=== PATIENT | female | born 1995 | race Caucasian/White ===

== ENCOUNTER 2019-12-14 11:16 | Outpatient (CLI) | payer BC, SELFPAY ==
[2019-12-14 12:22] LABS: Hemoglobin 11.1 g/dL (12.0-15.0); Mean Corpuscular HGB Conc 32.6 g/dl (32-36); Mean Corpuscular Hemoglobin 30.7 pg (26-34); Mean Corpuscular Volume 94.2 fl (80-100); Mean Platelet Volume 11.3 fl (7.4-10.4); Platelet Count Result 243 k/mm3 (150-375); Red Blood Count 3.61 M/mm3 (4.2-5.4); Red Cell Distribution Width 14.9 % (11.5-14.5); White Blood Count 11.3 K/mm3 (4.5-10.0)
[2019-12-16 09:15] LABS: Rapid Plasma Reagin Non-Reactive (NonReactive)
== END 2019-12-14 11:17 | disposition home or self-care (01) ==
PROVIDERS: Visit Provider Obstetrics & Gynecology
DX: Z01.812 Encounter for preprocedural laboratory examination (principal)
CPT/HCPCS: 36415; 85027; 86592; 86850; 86900; 86901

== ENCOUNTER 2019-12-16 08:17 | Inpatient (IN) | payer BC, SELFPAY ==
--- NOTE | 2019-12-14 12:56 | PC.NURSE ---
VERIFIED WITH OR SCHEDULE AND PATIENT --C/S ON 12/16/19 AT 1030 PATIENT HAD LABS DRAWN ON 12/14/19 BEFORE PREADMIT APPOINTMENT
[2019-12-16] VITALS (69 sets, daily range): BP systolic 80–123; BP diastolic 44–95; PULSE 62–156; RESP 12–18; TEMP 36.2–36.8; O2SAT 96–100; BMI 35.5
--- NOTE | 2019-12-16 08:10 | P.HP_ITS ---
H&P: HPI History of Present Illness Chief complaint: labor Narrative: Tristan Deluna is a 24 year old female @ 39 weeks scheduled for a repeat csection. complicated by a prior csection. Patient reports positive movement, denies rupture of membranes. [facility] Surgical History Surgical History H/O: Family History Family History Grandparent Diabetes mellitus Hypertension Social History Social History Substance use: never Spiritual care concerns: No Meds Home Medications and Allergies Home Medications Medication Instructions Recorded Confirmed Type PNV cmb#95-ferrous fumarate-FA 1 tablet PO DAILY 12/14/19 12/14/19 History [] ergocalciferol (vitamin D2) 1,250 mcg PO WEEKLY 12/14/19 12/14/19 History [Vitamin D2] Allergies Allergy/AdvReac Type Severity Reaction Status Date / Time No Known Drug Allergies Allergy Unknown Verified 12/03/15 13:33 Exam Const: General: no acute distress Resp: Auscultation: clear to auscultation bilaterally GI: GI Palp: Yes Soft to palpation Other: Gravid Assessment and Plan Assessment and plan (1) H/O: : Code(s): Z98.891 - History of uterine scar from previous surgery Status: Acute Assessment and Plan: Scheduled for a repeat cesearean risk and benefits reviewed with patient in detail.
--- NOTE | 2019-12-16 09:08 | LDADM ---
This patient, Tristan Deluna, was admitted to OB Post 117 on 12/16/19 at 08:17. Plans for labor, pain management and were discussed with patient. Patient/family oriented to hospital policies and general routines including ID bracelet, bed and alarms, visiting hours, pain management, procedures, bathroom and other care routines, personal items, smoking policy, room service/diet and guest tray routines, security routines, and visiting hours. Patient/Family are encouraged to report perceived risks to care and to ask questions if they do not understand what they are told or what they should do. See OBIX for further documentation.
[2019-12-16] MEDS: LACTATED RINGERS 1,000 ML 999 ML IV CONT (09:14)
--- NOTE | 2019-12-16 09:39 | P.PNAN_ITS ---
Anes - Initial Pre Proc Eval Procedure: Operation Date: 12/16/19 10:30 Proposed Procedures p Repeat Section - Oren Jalloh MD Date/Time: 12/16/19 09:39 Surgeon: Oren Jalloh MD Pre Op Diagnosis: Section Patient Data Age: 24 Gender: F Height: 1.6 m Weight: 91 kg Last Vital Signs Pulse 97 12/16/19 09:16 BP 121/69 12/16/19 09:16 Allergies Allergy/AdvReac Type Severity Reaction Status Date / Time No Known Drug Allergies Allergy Unknown Verified 12/03/15 13:33 Home Medications Medication Instructions Recorded Confirmed Type PNV cmb#95-ferrous fumarate-FA 1 tablet PO DAILY 12/14/19 12/14/19 History [] ergocalciferol (vitamin D2) 1,250 mcg PO WEEKLY 12/14/19 12/14/19 History [Vitamin D2] Patient hx anesthesia problems: none Family hx anesthesia problems: none PMFSH Surgical History Surgical History H/O: Family History Family History Grandparent Diabetes mellitus Hypertension Social History Social History Smoking status: Never smoker Substance use: never Spiritual care concerns: No Anes - Eval Final PreProcedure Day of Procedure 12/16/19 09:39 Patient weight: overweight Heart: regular rate and rhythm Lungs: clear to auscultation and normal air movement Airway: Mallampati scale class II Neurological: alert and oriented Last oral intake: >/= 8 hours ASA classification: II Emergent: no Anesthetic plan: proceed Anesthesia type and monitoring: regional spinal Informed Consent: The patient's anesthetic plan and its attendant risks and bene fits were discussed with the patient/family/POA. Questions were solicited and answers provided to the satisfaction of the patient/family/POA.
[2019-12-16] MEDS: ceFAZolin 2 GM/D5W 50 ML 2 GM/50 ML BAG IVPB (10:26)
--- NOTE | 2019-12-16 11:11 | P.PCNOB_ITS ---
OB - Delivery Note Procedure Delivery date: 12/16/19 Procedure: LTCS Procedures Operation Date: 12/16/19 10:30 <No data on this case meets the specified criteria> Intrapartal events: None Induction method: none Route of delivery: Laceration description: None Specimen: Yes Estimated blood loss (mL): 330 Anesthesia type: Spinal Disposition: observation [place] Baby Date of : 12/16/19 Time of : 10:48 Weeks of gestation at delivery: 39 gender: Male Weight (pounds): 7 Weight (ounces): 2 presentation: vertex position: Right Occiput Anterior Placenta delivery description: Spontaneous cord vessel description: 2 Vessels and Nuchal Cord score one minute: 8 score five minutes: 9
--- NOTE | 2019-12-16 11:13 | PM.DS ---
DS: Admitting Diagnosis Admitting Diagnosis Admitting Diagnosis: History of uterine scar from previous surgery DS: Discharge Diagnosis Discharge Diagnosis (1) H/O: : Code(s): Z98.891 - History of uterine scar from previous surgery Status: Acute DS: Summary Time Spent with Patient Time attestation: Total time spent providing and/or coordinating discharge services: Discharge Plan Discharge Attending physician on discharge: Oren Jalloh Consulting providers: ; Lobo Song Discharging Clinician: Oren Jalloh Patient Disposition: Home, Self-Care Activity: may shower and pelvic rest Diet: regular Discharge Instructions: Education: Mom and Baby Guide Given to: Mother Follow-Up: Call your delivering provider's office for an appointment to be seen in: 1 Week Mom and baby should come to the [facility] for the follow-up appointment. Appointment Date/Time: December 19, 2019 at 9:00 am What to expect at your follow-up visit: Blood Pressure Check Call [phone] if you are unable to keep your appointment time. BREAST CARE: 1. Wear a snug supportive bra. 2. For engorgement discomfort: Breast Feeding: A. Apply warm moist washcloths B. Express milk as needed to relieve engorgement C. Wear loose clothing Bottle Feeding: A. May apply ice packs 3. For sore nipples: A. Identify correct latch-on B. Apply warm moist washcloths before and after nursing C. Air dry nipples after nursing D. May apply Lansinoh cream to nipples ABDOMINAL INCISION: (if applicable) 1. Allow incision to air dry 2. Do NOT use lotions for powders on your incision 3. When showering, allow soap and water to run over the incision, but do not wash incision EPISIOTOMY/PERINEAL CARE: 1. Until bleeding stops, use your ld bottle after urinating 2. Change your pad frequently throughout the day 3. No tub baths until seen by your physician - You may shower ACTIVITY: 1. Rest as much as possible. 2. Do not exercise or lift anything heavier than your baby (such as laundry or other children.) 3. Avoid stairs or driving as much as possible. 4. Do not put anything into the vagina. No douching, tampons, or sexual activity until seen by physician. NOTIFY PHYSICIAN IF YOU HAVE ANY QUESTIONS OR IF ANY OF THE FOLLOWING SYMPTOMS OCCUR: 1. If your incision becomes red, swollen, or more painful than what you have experienced in the hospital. 2. If your vaginal bleeding becomes foul smelling. 3. If your vaginal bleeding becomes more heavy than a period or if your bleeding changes from pink to bright red. However, you may pass an occasional walnut-sized clot once or twice for the first week . 4. If you experience a sharp, shooting pain in you calves. 5. If you discover a hard, reddened area on your breast or if you experience flu-like symptoms. 6. Call for temp 100.4 or greater DIET: 1. Eat regular, well-balanced meals. 2. Drink plenty of fluids daily. If , drink to thirst. Patient Instructions: Antibiotic Form Stand Alone Forms: General Discharge Information Follow-up/Referrals: Oren Jalloh MD [Physician] - Discharge Medications: New hydrocodone-acetaminophen 5-325 mg Tablet 1 tab PO Q4H PRN (Reason: Pain Rated 4-6) Qty: 30 RF: 0 Continued ergocalciferol (vitamin D2) [Vitamin D2] 1,250 mcg (50,000 unit) Capsule 1,250 mcg PO WEEKLY RF: 0 PNV cmb#95-ferrous fumarate-FA [] 28 mg iron- 800 mcg Tablet 1 tablet PO DAILY RF: 0 Date of admission: 12/16/19 08:17 Primary Care Provider: PHYSICIAN NOT ON STAFF,NONSTAFF Admitting Provider: Oern Jalloh Discharge Date/Time: 12/18/19 12:56 Attending physician on admission: Oren Jalloh
[2019-12-16] MEDS: OXYTOCIN 20 UNITS in LACTATED RINGERS 1,000 ML 999 ML IV CONT (12:11)
--- NOTE | 2019-12-16 13:29 | PC.NURSE ---
Patient transferred to post room #291. Support person present. Oriented to unit, room, information board, rooming in, admission packet and security measures. Patient verbalizes understanding.
--- NOTE | 2019-12-16 13:45 | PC.NURSE ---
After moving from stretcher to bed for small area noted on right side of incision noted to be oozing. Dermaflex applied to incision and no further bleeding noted.
--- NOTE | 2019-12-16 15:30 | PC.NURSE ---
Mother called out for assist. Consulted with patient, mother reports eagerly fed at first feeding. Mother reports she used a nipple shield with first child and then switched to pump and bottle feeding within a few weeks. Reviewed infant feeding cues, frequencies, duration of feedings, feeding elimination flow sheet, and signs of adequate intake. Demonstrated stimulation techniques to wake infant for feeding. Assisted with to breast. Reviewed positioning/alignment in cross cradle, holding breast in U hold and guided asymmetrical latch on. Discussed rational for each. 1420 attempt no latch skin to skin 1500 eager attempts returning to sleep skin to skin 1530 Several attempts made with skin to skin before latched. was able to latch correctly with first attempt. nursed eagerly, with steady draws and frequent swallowing noted. Reviewed signs of a correct latch, effective nursing and suck swallow ratio. was able to maintain latch without discomfort to mother. Nipple care reviewed. Suggested to stimulate during feeding to keep infant awake and nursing effectively for increased intake and assist with maintaining deep latch. Demonstrated how to adjust latch more deeply while feeding. Instructed mother to call out for RN assistance if she is unable to latch infant for feeding or she has discomfort with nursing. Instructed feeding should be initiated three hours from start of last feeding or if feeding cues are noted before. Mother voiced understanding of information shared.
[2019-12-16] MEDS: DEXTROSE 5%/0.45% SOD CHL 1,000 ML 125 ML (17:05)
[2019-12-17 03:00] VITALS: BP 114/67; PULSE 105; RESP 16; TEMP 36.8; O2SAT 97
[2019-12-17 04:07] LABS: Hemoglobin 11.1 g/dL (12.0-15.0)
[2019-12-17] MEDS: IBUPROFEN 600 MG TABLET PO ×3 (06:01→18:07)
--- NOTE | 2019-12-17 07:46 | PM.OBPNVD ---
OB - PN: Subj Subjective Date/time seen: 12/17/19 07:46 Patient comments: no complaints and pain well controlled baby status: doing well OB - PN: Obj Data Labs CBC & Chem 7: 12/17/19 02:58 Labs: Laboratory Results - last 24 hr 12/17/19 02:58 Hgb 11.1 L Hct 34.0 L OB - PN A/P Assessment and Plan (1) delivery delivered: Code(s): O82 - Encounter for delivery without indication Status: Acute Assessment and Plan: Doing well. Continue care. Time Spent With Patient Time: Total time spent is greater than 50% in coordination of care (as documented) at patient's floor/unit and/or counseling patient: Exam GI: Other: inc c/d/i : Bimanual exam- vagina & uterus: other (Uterus firm, nt @U)
--- NOTE | 2019-12-17 07:56 | WPDANLDNPN2 ---
Anes-Prog Note L&D-Neuraxial Date/Time: 12/17/19 07:56 Neuraxial medications: intrathecal PF morphine Opiod-related complaints: none Patient feedback: Patient satisfied with post-operative pain management.
--- NOTE | 2019-12-17 07:56 | WPDANLDPN2 ---
Anes-Prog Note L&D Date/Time: 12/17/19 07:56 Comfortable throughout: section Neuraxial method: spinal Epidural/Spinal procedure site: clean & non-tender Neuro status: Neuro function grossly intact. Cardiovascular status: normal Respiratory status: normal Airway patency: baseline Mental status: baseline Post-Op hydration status: normal Vital Signs: Last Vital Signs Temp 36.8 C 12/17/19 03:00 Pulse 105 H 12/17/19 03:00 Resp 16 12/17/19 03:00 BP 114/67 12/17/19 03:00 Pulse Ox 97 12/17/19 03:00 I/O: Intake & Output 12/16/19 12/16/19 12/17/19 15:59 23:59 07:59 Intake Total 1150 1000 Output Total 673 121 1846 Balance 170 550 -2750 Post-procedural complaints: none Patient feedback: Patient satisfied with anesthetic care.
[2019-12-17 08:45] VITALS: BP 122/72; PULSE 98; RESP 18; TEMP 36.7; O2SAT 97
[2019-12-17] MEDS: DOCUSATE SODIUM 100 MG CAPSULE PO ×2 (08:55→17:04)
[2019-12-17] MEDS: MULTIVIT/MIN/PREN/FOL AC/IRON TABLET 1 TAB PO (08:56)
--- NOTE | 2019-12-17 09:15 | PC.NURSE ---
Consulted with patient, mother reports infant fed well during the night. Mother put to breast independently, was latched deeply, nursing eagerly with steady draws and frequent swallowing for bursts followed with long pausing. Reviewed signs of a correct latch, effective nursing and suck swallow ratio. was able to maintain latch without discomfort to mother. Nipple care reviewed. Suggested to stimulate during entire feeding to keep awake and feeding effectively for increased intake and assist maintaining deep latch. Infant responded to stimulation with increased nursing. Instructed mother to call out for RN assistance if she is unable to latch for feeding or she has discomfort with nursing. Instructed feeding should be initiated three hours from start of last feeding or if feeding cues are noted before. Mother voiced understanding of information shared.
--- NOTE | 2019-12-17 12:45 | OP_ITS ---
DATE OF PROCEDURE: 12/16/2019 PREOPERATIVE DIAGNOSIS: Repeat section. POSTOPERATIVE DIAGNOSIS: Repeat section. PROCEDURE: Repeat low-transverse section. ANESTHESIA: Spinal. COMPLICATIONS: None. ESTIMATED BLOOD LOSS: 330 mL. FINDINGS: Female infant in vertex presentation. DESCRIPTION OF PROCEDURE: The patient was taken to the operating room with IV running. She was prepared and draped in normal sterile fashion and placed in a supine position with a leftward tilt. A Pfannenstiel skin incision was made with a scalpel, carried through to the underlying layer of fascia. This fascial incision was then extended bilaterally with Garcia scissors. Superior aspect of the incision was grasped with Zachary clamps, elevated, and dissected off the rectus muscles. The inferior aspect of the incision was grasped with Zachary clamps, elevated off the rectus muscle. The rectus muscles were in the midline and the peritoneum was entered bluntly. The bladder blade was inserted. Vesicouterine peritoneum was grasped with Peans and entered sharply with Metzenbaum scissors. Bladder flap was created digitally. The bladder blade was reinserted. The lower uterine segment was incised in a transverse fashion and extended bluntly. The head was delivered atraumatically. Nuchal cord x1 reduced. The remainder of the fetus was delivered. The cord was clamped and cut. The fetus was handed off to waiting nurse. The cord blood was obtained and gases were obtained and placenta delivered spontaneously. Uterus was cleared of all clots and debris. The uterine incision was closed with 0 Monocryl in a running locked fashion. A second layer of the same suture was used to imbricate this incision. The uterus was returned to the abdomen. The gutters were cleared of all clots and debris. Hemostasis was assured. The muscles were examined for hemostasis. The fascia was closed with 0 Vicryl in a running fashion. The subcutaneous tissue was irrigated and hemostasis was assured. The skin was closed with 4-0 Vicryl on a Robin needle. Sponge, lap, and needle counts were correct x2. D I MT: Gilles
[2019-12-17 19:44] VITALS: BP 113/68; PULSE 109; RESP 16; TEMP 36.6
[2019-12-18] MEDS: IBUPROFEN 600 MG TABLET PO ×3 (00:20→12:53)
[2019-12-18 07:39] VITALS: PULSE 107; RESP 16; O2SAT 99
--- NOTE | 2019-12-18 07:39 | PC.NURSE ---
PT introductions made and plan of care discussed per post op c section, pain management, breast feeding, daily care activities and pending discharge to home. PT verbalized understanding of such care.
[2019-12-18 09:10] VITALS: BP 127/68; PULSE 107; RESP 16; TEMP 37; O2SAT 99
--- NOTE | 2019-12-18 09:48 | P.PNOB_ITS ---
OB - PN: Subj Subjective Date/time seen: 12/18/19 09:48 doing well no complaints desires home OB - PN: Obj Data Labs CBC & Chem 7: 12/17/19 02:58 OB - PN A/P Assessment and Plan (1) delivery delivered: Code(s): O82 - Encounter for delivery without indication Status: Acute Assessment and Plan: d/c home Time Spent With Patient Time: Total time spent is greater than 50% in coordination of care (as documented) at patient's floor/unit and/or counseling patient: Exam 2 GI: Other: incsision c/d/i
--- NOTE | 2019-12-18 10:00 | PC.NURSE ---
Patient was given the opportunity to view the discharge video Mother & Baby Care, The First Two Weeks and to ask questions. Patient declined viewing the video and has been given the mother/baby guide for home reference.But pt did down load video to phone to watch later, and jot down any questions or concerns to be addressed at follow up appointment
--- NOTE | 2019-12-18 10:50 | PC.NURSE ---
Mother called out for assist with feeding, reporting pain with latch. Mother states she began having difficulties with latching and has bruising to nipples and areolas. Bruising noted to both nipples and areolas. Reviewed nipple care. Discussed latch and difficulties, with decision to return to nipple shield use and pump after each feeding until milk is established. With shield in place, infant was able to latch correctly. nursed eagerly, with steady draws and frequent swallowing noted. Reviewed signs of a correct latch, effective nursing and suck swallow ratio. Infant was able to maintain latch without discomfort to mother. Reviewed weaning techniques from shield. Mother was able to independently latch with appropriate positioning/alignment. She denies any nipple discomfort, is feeding as required and waking infant to feed if needed. is currently meeting outcomes for weight, output, jaundice and feeding frequencies. Mother states she feels confident to continue effective at home. Reviewed transition to breast milk, signs of adequate intake, and engorgement/relief. Instructed to call ICP if intake/output less than required. Reviewed regular medications mother is taking. Information provided per Ek[facility]. Reviewed community resources on the [facility] website and in the Mom/Baby guide. Information on outpatient services provided. Mother has no further questions at this time.
[2019-12-18] MEDS: SIMETHICONE 80 MG TAB.CHEW PO (11:27)
[2019-12-18] MEDS: DOCUSATE SODIUM 100 MG CAPSULE PO (11:27)
[2019-12-18] MEDS: MULTIVIT/MIN/PREN/FOL AC/IRON TABLET 1 TAB PO (11:27)
--- NOTE | 2019-12-18 12:15 | PC.NURSE ---
PT received discharge instructions per protocol and verbalized understanding of such instructions.
--- NOTE | 2019-12-18 12:56 | PC.NURSE ---
PT discharged to home ambulatory accompanied by spouse and to waiting car. Follow up appts confirmed
[2019-12-19 09:54] VITALS: BP 119/80; PULSE 93; RESP 20; TEMP 37.1
== END 2019-12-18 12:56 | disposition home or self-care (01) | DRG 788 ==
LOC: ANHOBPP 08:21 → ANHOB2 13:34
PROVIDERS: Admitting Provider Obstetrics & Gynecology; Visit Provider Obstetrics & Gynecology
PROC: 10D00Z1 Extraction of Products of Conception, Low, Open Approach (ICD-10-PCS; CPT 59514; principal; 2019-12-16 10:30)
DX: O34.211 Maternal care for low transverse scar from previous cesarean delivery (principal); Z37.0 Single live birth; Z3A.39 39 weeks gestation of pregnancy; O69.89X0 Labor and delivery complicated by other cord complications, not applicable or unspecified
CPT/HCPCS: 36415; 85014; 85018; 88307; A9270; J0131; J0690; J1200; J2274; J2590; J7120

== ENCOUNTER 2021-05-15 13:49 | Outpatient (CLI) | payer BC, SELFPAY ==
[2021-05-15 14:23] LABS: Hematocrit 36.1 % (37.0-47.0); Hemoglobin 11.7 g/dL (12.0-15.0); Mean Corpuscular HGB Conc 32.4 g/dl (32-36); Mean Corpuscular Hemoglobin 31.1 pg (26-34); Mean Platelet Volume 11.4 fl (7.4-10.4); Platelet Count Result 211 k/mm3 (150-375); Red Blood Count 3.76 M/mm3 (4.2-5.4); Red Cell Distribution Width 14.6 % (11.5-14.5); White Blood Count 12.4 K/mm3 (4.5-10.0)
[2021-05-17 06:12] LABS: Rapid Plasma Reagin Non-Reactive (NonReactive)
== END 2021-05-15 13:50 | disposition home or self-care (01) ==
PROVIDERS: PCP Family Medicine; Visit Provider Obstetrics & Gynecology
DX: Z34.93 Encounter for supervision of normal pregnancy, unspecified, third trimester (principal); Z3A.00 Weeks of gestation of pregnancy not specified
CPT/HCPCS: 36415; 85027; 86592; 86850; 86900; 86901

== ENCOUNTER 2021-05-17 05:40 | Inpatient (IN) | payer BC, SELFPAY ==
--- NOTE | 2021-05-15 14:45 | PC.NURSE ---
VERIFIED WITH OR SCHEDULE AND PATIENT--C/S WITH TUBAL LIGATION ON 05/17/21 AT 0730 PATIENT HAD PRE-OP LABS DRAWN ON 05/15/21
--- NOTE | 2021-05-16 22:48 | PM.IMHP ---
H&P: HPI History of Present Illness Date/Time: 05/16/21 22:48 26 y/o @ 39 weeks by ultrasound for an EDC of 05/22/21 complicated by two prior csections. Patient presents for a repeat cesection and desires permanent sterilization. Patient reports movement and denies leakage of fluid. Chief Complaint: repeat csection desires tubal ligation Review of Systems Constitutional: Constitutional: Reports fatigue PMFSH Surgical History Surgical History H/O: Family History Family History Grandparent Diabetes mellitus Hypertension Social History Social History Smoking status: Never smoker Second hand tobacco smoke exposure: No Substance use: former Last use: 09/22/20 Spiritual care concerns: No Meds Home Medications and Allergies Home Medications Medication Instructions Recorded Confirmed Type PNV cmb#95-ferrous fumarate-FA 1 tablet PO DAILY 12/14/19 05/17/21 History [] ergocalciferol (vitamin D2) 1,250 mcg PO WEEKLY 12/14/19 05/17/21 History [Vitamin D2] Allergies Allergy/AdvReac Type Severity Reaction Status Date / Time No Known Drug Allergies Allergy Unknown Verified 12/03/15 13:33 Exam Resp: Auscultation: clear to auscultation bilaterally Cardio: Rate: regular rate Rhythm: regular rhythm GI: Other: Gravid fundal height 39 H&P: Results Labs Labs: Apositive rubella Imnnune HIV negative, hepatitis negative, rpr negative Assessment and Plan Assessment and plan (1) H/O: : Code(s): Z98.891 - History of uterine scar from previous surgery Status: Acute Assessment and Plan: Scheduled for a repeat with bilateral tubal ligation. Risk and benefits reviewed with patient in detail including bleeding infection trauma. Patient agrees to proceed with surgery.
[2021-05-17] VITALS (53 sets, daily range): BP systolic 75–117; BP diastolic 38–83; PULSE 64–119; RESP 18–20; TEMP 36.1–36.6; O2SAT 95–100; BMI 33.2; BMI 35.1
[2021-05-17] MEDS: LACTATED RINGERS 1,000 ML 125 ML IV CONT (06:22)
--- NOTE | 2021-05-17 06:53 | P.PNAN_ITS ---
Anes - Initial Pre Proc Eval Procedure: Operation Date: 05/17/21 07:30 Proposed Procedures p Repeat Section, Possible Bilateral Tubal Sterilization - Oren Jalloh MD Date/Time: 05/17/21 06:53 Surgeon: Oren Jalloh MD Pre Op Diagnosis: C/S Patient Data Age: 26 Gender: F Height: 1.6 m Weight: 90 kg Last Vital Signs Pulse 118 H 05/17/21 06:15 BP 116/73 05/17/21 06:15 Allergies Allergy/AdvReac Type Severity Reaction Status Date / Time No Known Drug Allergies Allergy Unknown Verified 12/03/15 13:33 Home Medications Medication Instructions Recorded Confirmed Type PNV cmb#95-ferrous fumarate-FA 1 tablet PO DAILY 12/14/19 12/14/19 History [] ergocalciferol (vitamin D2) 1,250 mcg PO WEEKLY 12/14/19 12/14/19 History [Vitamin D2] Laboratory Tests 05/17/21 06:20 Urine Opiates Screen Pending Urine Methadone Screen Pending Ur Barbiturates Screen Pending Ur Phencyclidine Scrn Pending Ur Amphetamine Screen Pending U Benzodiazepines Scrn Pending Urine Cocaine Screen Pending U Cannabinoids Screen Pending Patient hx anesthesia problems: none Family hx anesthesia problems: none Results Review: All pre-operative results and documents have been reviewed as part of the pre-operative evaluation. [facility], [facility] Surgical History Surgical History H/O: Family History Family History Grandparent Diabetes mellitus Hypertension Social History Social History Smoking status: Never smoker Second hand tobacco smoke exposure: No Substance use: former Last use: 09/22/20 Spiritual care concerns: No Anes - Eval Final PreProcedure Day of Procedure 05/17/21 06:53 Patient weight: obese Heart: regular rate and rhythm Lungs: clear to auscultation Airway: Mallampati scale class II Neurological: alert and oriented Last oral intake: >/= 8 hours ASA classification: II Emergent: no Anesthetic plan: proceed Anesthesia type and monitoring: regional spinal and standard monitoring Results Review: All pre-operative results and documents have been reviewed as part of the pre-operative evaluation. Informed Consent: The patient's anesthetic plan and its attendant risks and benefits were discussed with the patient/family/POA. Questions were solicited and answers provided to the satisfaction of the patient/family/POA.
[2021-05-17 06:56] LABS: Amphetamine Screen Urine Negative (Negative); Barbiturate Screen Urine Negative (Negative); Benzodiazepines Screen Urine Negative (Negative); Cannabinoid Screen Urine Negative (Negative); Cocaine Screen Urine Negative (Negative); Methadone Screen Urine Negative (Negative); Opiate Screen Urine Negative (Negative); Phencyclidine Screen Urine Negative (Negative)
--- NOTE | 2021-05-17 07:37 | WPDHPUPDATE1 ---
History and Physical Update Update Date/Time: 05/17/21 07:37 History and Physical has been reviewed, including an updated exam of the patient. There are NO changes in the patient's condition. Risks, benefits, and alternatives have been discussed and questions answered. Patient agrees to proceed with procedure.
--- NOTE | 2021-05-17 08:47 | LDADM ---
This patient, Tristan Deluna, was admitted to Labor/Delivery/Recovery 120 on 05/17/21 at 05:40. Plans for scheduled section, pain management and were discussed with patient. Patient/family oriented to hospital policies and general routines including ID bracelet, bed and alarms, visiting hours, pain management, procedures, bathroom and other care routines, personal items, smoking policy, room service/diet and guest tray routines, infant security routines, and visiting hours. Patient/Family are encouraged to report perceived risks to care and to ask questions if they do not understand what they are told or what they should do. See OBIX for further documentation.
[2021-05-17] MEDS: ONDANSETRON INJ 4 MG/2 ML VIAL IV PUSH (09:45)
[2021-05-17] MEDS: OXYTOCIN 30 UNITS/NS 500 ML 30 UNITS/500 ML BAG 125 UNITS IV CONT (09:45)
--- NOTE | 2021-05-17 10:38 | PC.NURSE ---
Patient transferred to post room #280 per stretcher. Support person present. Oriented to unit, room, information board, rooming in, admission packet and security measures. Patient verbalizes understanding.
--- NOTE | 2021-05-17 12:50 | W.PM.PROC2 ---
Procedure Note - Detailed Date of Procedure 05/17/21 Pre-op Diagnosis C/S desires sterilizaiton Post-op Diagnosis same Procedure Performed repeat csection with bilateral salpingectomy Surgeon Oren Jalloh MD Anesthesia spinal Findings female infant vertex, nuchal x 1 normal tubes and ovaries Description of Procedure Patient was taken to the operating room with IV running and epidural in place. She was prepared and draped in a normal sterile fashion and placed in the supine position with a leftward tilt. A Pfannenstiel incision was made with scalpel carried out underlying layer of fascia. The fascial incision was then extended bilaterally with blunt dissection. The abdominal muscles were in the midline. There several dense adhesions of muscle fascial wall to the muscle and bladder. Sharp and blunt dissection done to carefully distinguish layers. . Bladder blade was inserted. a bladder flap was created with peons and metzenbaum scissors. His scalp was used to make a transverse incision in the uterus and this was extended bluntly. The head was delivered atraumatically and the remainder of the fetus was delivered the cord was clamped and cut and the fetus was handed off to the waiting nurse at javascript front end developer. The cord blood was obtained for gases are obtained. The placenta was delivered spontaneously and the uterus was exteriorized and cleared of all clots and debris. Uterine incision was closed with 0 Monocryl in a running locked fashion Attention was then turned to the right fallopian tube. It was grasped with a andrey, clamped wth a Z-clamp, transected and suture ligated with 3-0 vicryl The same procedure was performed on the left tube. specimen sent to path. Hemostasis was assured the uterus was returned to the abdomen. abdomen was cleared of all clots and debris. The muscles were examined for hemostasis the fascia was closed with 0 Vicryl in a running fashion the subcutaneous tissue was irrigated hemostasis assured and the skin was closed with 4-0 Vicryl on a Robin needle. Patient received 2g of Ancef prior to skin incision and patient was taken to the recovery room in stable condition. Estimated Blood Loss -280.0 Urine Output 100 Drains Yes Packing No Pathology yes Complications None Condition stable Disposition PACU
--- NOTE | 2021-05-17 12:55 | PC.NURSE ---
Mother called out for assist with feeding, reporting eagerly fed for first feeding. This is mother's 3rd child to breastfeed. Infant is able to freely thrust tongue past gum ridge and flange both lips. Skin is intact on both nipples, no redness and bruising noted. Reviewed feeding cues, frequencies, duration of feedings, feeding elimination flow sheet, and signs of adequate intake. Demonstrated stimulation techniques to wake for feeding. Assisted with infant to breast. Reviewed positioning/alignment in football, holding breast in ?C? hold and guided asymmetrical latch on. Reviewed rational for each. able to latch correctly within a few attempts. Infant nursed eagerly with steady draws and occasional swallowing noted, some pausing noted. Reviewed signs of a correct latch, effective nursing and suck swallow ratio. Suggested mother stimulate while feeding to increase stimulation for milk supply, for increased intake and to assist with maintaining deep latch. Infant was able to maintain latch without discomfort to mother. Demonstrated how to adjust latch more deeply while feeding as needed. Nipple care reviewed of lanolin after feedings, warm compresses as needed. Instructed mother to call out for RN assistance if she is unable to latch infant for feeding or she has discomfort with nursing. Instructed feeding should be initiated three hours from start of last feeding or if feeding cues are noted before. Mother voiced understanding of information shared.
--- NOTE | 2021-05-17 13:15 | PM.OBDSVD ---
DS: Admitting Diagnosis Discharge Date 05/19/2021 Admitting Diagnosis repeat csection and desires sterilizaition OB - DS: Summary OB Procedures : Ultrasound OB Procedures Intrapartum: and Tubal ligation OB Procedures: : None Peripartum Data Procedures: Procedures Operation Date: 05/17/21 07:30 Actual Procedure Side Surgeon p Repeat Section, Possible Bilateral Tubal Sterilization Oren Jalloh MD Time Spent with Patient Time attestation: Total time spent providing and/or coordinating discharge services: DS: Data Data Completed and Pending Pending studies at discharge: Pending at discharge 05/17/21 08:17 Surgical [PTH] Routine Labs on day of discharge: Labs from last 24 hours 05/17/21 06:20 Urine Opiates Screen Negative Urine Methadone Screen Negative Ur Barbiturates Screen Negative Ur Phencyclidine Scrn Negative Ur Amphetamine Screen Negative U Benzodiazepines Scrn Negative Urine Cocaine Screen Negative U Cannabinoids Screen Negative Discharge Plan Discharge Attending physician on discharge: Oren Jalloh Consulting providers: Daren Torres Discharging Clinician: Oren Jalloh Patient Disposition: Home, Self-Care Activity: pelvic rest Diet: regular Discharge Instructions: Education: Mom and Baby Guide and Preeclampsia Handout Given to: Mother Follow-Up: Call your delivering provider's office for an appointment to be seen in: 1 Week Mom and baby should come to the [facility] for the follow-up appointment. Appointment Date/Time: May 21, 2021 at 10:00 am What to expect at your follow-up visit: Physical Assessment Call [phone] if you are unable to keep your appointment time. BREAST CARE: * Wear a snug supportive bra. * For engorgement discomfort: Breast Feeding: * Apply warm moist washcloths * Express milk as needed to relieve engorgement * Wear loose clothing * For sore nipples: * Identify correct latch-on * Apply warm moist washcloths before and after nursing * Air dry nipples after nursing * May apply Lansinoh cream to nipples ABDOMINAL INCISION: (if applicable) * Allow incision to air dry * Do NOT use lotions for powders on your incision * When showering, allow soap and water to run over the incision, but do not wash incision EPISIOTOMY/PERINEAL CARE: * Until bleeding stops, use your ld bottle after urinating * Change your pad frequently throughout the day * No tub baths until seen by your physician - You may shower ACTIVITY: * Rest as much as possible. * Do not exercise or lift anything heavier than your baby (such as laundry or other children.) * Avoid stairs or driving as much as possible. * Do not put anything into the vagina. No douching, tampons, or sexual activity until seen by physician. NOTIFY PHYSICIAN IF YOU HAVE ANY QUESTIONS OR IF ANY OF THE FOLLOWING SYMPTOMS OCCUR: * If your incision becomes red, swollen, or more painful than what you have experienced in the hospital. * If your vaginal bleeding becomes foul smelling. * If your vaginal bleeding becomes more heavy than a period or if your bleeding changes from pink to bright red. However, you may pass an occasional walnut-sized clot once or twice for the first week . * If you experience a sharp, shooting pain in you calves. * If you discover a hard, reddened area on your breast or if you experience flu-like symptoms. DIET: * Eat regular, well-balanced meals. * Drink plenty of fluids daily. If , drink to thirst. Stand Alone Forms: General Discharge Information Follow-up/Referrals: Oren Jalloh MD [Physician] - Discharge Medications: New hydrocodone-acetaminophen 5-325 mg Tablet 1 tablet PO Q3H PRN (Reason: Moderate Pain (4-6)) Qty: 30 RF: 0 Continued ergocalciferol (vitamin D2) [Vitami
[2021-05-17] MEDS: KETOROLAC 30 MG/ML VIAL (*BKC) IV PUSH (13:38)
[2021-05-17] MEDS: HYDROcodone/acetaminophen (*CRX) 10-325 MG TABLET 1 TAB PO (16:24)
[2021-05-17] MEDS: DOCUSATE SODIUM 100 MG CAPSULE PO (16:24)
[2021-05-17] MEDS: SIMETHICONE 80 MG TAB.CHEW PO (16:24)
[2021-05-18 00:20] VITALS: BP 114/61; PULSE 98; RESP 16; TEMP 36.9; O2SAT 100
[2021-05-18 04:15] VITALS: BP 114/60; PULSE 92; RESP 16; TEMP 36.9; O2SAT 99
[2021-05-18] MEDS: IBUPROFEN 600 MG TABLET PO ×4 (04:15→23:23)
[2021-05-18] MEDS: HYDROcodone/acetaminophen (*CRX) 5-325 MG TABLET 1 TAB PO ×5 (04:15→23:23)
[2021-05-18 05:18] LABS: Basophils Percent Auto 0.3 % (0.2-1.2); Eosinophils Absolute Auto 0.1 K/mm3 (0-0.3); Eosinophils Percent Auto 0.6 % (0-4.4); Hematocrit 36.9 % (37.0-47.0); Hemoglobin 11.7 g/dL (12.0-15.0); Immature Granulocyte Absolute 0.08 K/mm3 (0.00-0.031); Immature Granulocyte Percent A 0.7 % (0-0.5); Lymphocytes Absolute Auto 1.91 K/mm3 (0.9-3.2); Lymphocytes Percent Auto 15.6 % (18.3-44.2); Mean Corpuscular HGB Conc 31.7 g/dl (32-36); Mean Corpuscular Hemoglobin 30.5 pg (26-34); Mean Corpuscular Volume 96.3 fl (80-100); Mean Platelet Volume 11.2 fl (7.4-10.4); Monocytes Percent Auto 8.2 % (2.6-8.5); Neutrophils Absolute Auto 9.1 K/mm3 (1.3-6.7); Neutrophils Percent Auto 74.6 % (45.5-73.1); Platelet Count Result 258 k/mm3 (150-375); Red Blood Count 3.83 M/mm3 (4.2-5.4); Red Cell Distribution Width 14.6 % (11.5-14.5); White Blood Count 12.2 K/mm3 (4.5-10.0)
[2021-05-18 07:25] VITALS: BP 116/71; PULSE 90; RESP 18; TEMP 36.4; O2SAT 98
--- NOTE | 2021-05-18 07:30 | PC.NURSE ---
PT introductions made and plan of care discussed per post op c section, pain management, breast feeding, daily care activities. PT sole recipient of such instructions. PT received instructions per one to one discussion, mom baby care guide and demonstrations per this shift. no barriers to learning identified at this time. PT verbalized understanding of such care.
[2021-05-18] MEDS: SIMETHICONE 80 MG TAB.CHEW PO ×2 (10:13→16:32)
[2021-05-18] MEDS: POLYSACCHARIDE IRON COMPLEX 150 MG CAPSULE PO ×2 (10:14→16:33)
[2021-05-18] MEDS: DOCUSATE SODIUM 100 MG CAPSULE PO ×2 (10:14→16:33)
[2021-05-18] MEDS: MULTIVIT/MIN/PREN/FOL AC/IRON TABLET 1 TAB PO (10:14)
[2021-05-18 10:30] VITALS: PULSE 90; RESP 18; O2SAT 98
--- NOTE | 2021-05-18 11:12 | WPDANLDNPN2 ---
Anes-Prog Note L&D-Neuraxial Date/Time: 05/18/21 11:12 Neuraxial medications: intrathecal PF morphine Opiod-related complaints: none Patient feedback: Patient satisfied with post-operative pain management.
--- NOTE | 2021-05-18 11:13 | WPDANLDPN2 ---
Anes-Prog Note L&D Date/Time: 05/18/21 11:13 Comfortable throughout: section Neuraxial method: spinal Epidural/Spinal procedure site: clean & non-tender Neuro status: Neuro function grossly intact. Cardiovascular status: normal Respiratory status: normal Airway patency: baseline Mental status: baseline Post-Op hydration status: normal Vital Signs: Last Vital Signs Temp 36.4 C 05/18/21 07:25 Pulse 90 05/18/21 07:25 Resp 18 05/18/21 07:25 BP 116/71 05/18/21 07:25 Pulse Ox 98 05/18/21 07:25 Pain score (VAS): 0 I/O: Intake & Output 05/17/21 05/18/21 05/18/21 23:59 07:59 15:59 Intake Total 750 600 Output Total 350 2950 1000 Balance 400 -2350 -1000 Post-procedural complaints: none Patient feedback: Patient satisfied with anesthetic care.
--- NOTE | 2021-05-18 11:30 | PC.NURSE ---
Mother called out for assist with feeding, mother reports infant was sleepy during the night and supplemented one time. Mother has slight tenderness to right breast with feeding. Reviewed infants freq have a preference and should resolve quickly. is able to freely thrust tongue past gum ridge and flange both lips. Skin is intact on both nipples, no redness and bruising noted. Reviewed feeding cues, frequencies, duration of feedings, feeding elimination flow sheet, and signs of adequate intake. Demonstrated stimulation techniques to wake infant for feeding. Assisted with infant to breast. Reviewed positioning/alignment in cross cradle, holding breast in ?U? hold and guided asymmetrical latch on. Reviewed rational for each. Infant able to latch correctly within a few attempts. nursed eagerly with steady draws and occasional swallowing noted, some pausing noted. Reviewed signs of a correct latch, effective nursing and suck swallow ratio. Suggested mother stimulate while feeding to increase stimulation for milk supply, for increased intake and to assist with maintaining deep latch. would slip to shallow latch causing tenderness. Demonstrated how to adjust latch more deeply while feeding as needed. Mother reports she can feel the difference in latch with no tenderness. Advised to hold breast during the entire feeding for a few days to assist infant with maintaining deep latch. Nipple care reviewed of lanolin after feedings, warm compresses as needed. Instructed mother to call out for RN assistance if she is unable to latch infant for feeding or she has discomfort with nursing. Instructed feeding should be initiated three hours from start of last feeding or if feeding cues are noted before. Mother voiced understanding of information shared.
--- NOTE | 2021-05-18 15:27 | PCCCNOTE ---
Care Coordination met with pt. this morning to discuss discharge planning. Pt.'s current D/C plan is to return home with her and children. Pt. denies any D/C needs at this time. She is independent with ADLs and ambulation. Pt. states that she has everything needed to safely bring baby home. Pt. has no prior DCFS cases open. Pt. tested positive for THC during but tests negative at time of admission. Baby also tested negative, meconium is pending. CC will follow.
[2021-05-18 19:50] VITALS: BP 115/68; PULSE 99; RESP 16; TEMP 36.8; O2SAT 98
[2021-05-19] MEDS: HYDROcodone/acetaminophen (*CRX) 5-325 MG TABLET 1 TAB PO ×2 (02:30→08:13)
[2021-05-19] MEDS: IBUPROFEN 600 MG TABLET PO (08:13)
[2021-05-19] MEDS: DOCUSATE SODIUM 100 MG CAPSULE PO (08:13)
[2021-05-19] MEDS: MULTIVIT/MIN/PREN/FOL AC/IRON TABLET 1 TAB PO (08:13)
[2021-05-19 08:25] VITALS: BP 126/81; PULSE 91; RESP 16; TEMP 36.7; O2SAT 100
--- NOTE | 2021-05-19 08:30 | PC.NURSE ---
Consult with pt., observed mother is able to independently latch with appropriate positioning/alignment. Infant eagerly latches on first attempt with long rhythmical draws and frequent swallowing noted. She denies any nipple discomfort, is feeding as required and waking infant to feed if needed. Infant has had at least 8 effective feedings in the past 24 hours, and is currently meeting outcomes for weight, output, jaundice and feeding frequencies. Mother states she feels confident to continue effective at home. Reviewed transition to breast milk, signs of adequate intake, and engorgement/relief. Instructed to call ICP if intake/output less than required. Reviewed regular medications mother is taking. Information provided per [facility]. Reviewed community resources on the [facility] website and in the Mom/Baby guide. Information on outpatient services provided. Mother has no further questions at this time. Instructed feeding should be initiated three hours from start of last feeding or if feeding cues are noted before until seen by ICP. Mother voiced understanding of information shared.
--- NOTE | 2021-05-19 10:30 | PC.NURSE ---
Patient instructed on viewing the discharge video Mother & Baby Care, The First Two Weeks online. Patient was given the opportunity and encouraged to ask questions. Patient verbalized understanding of information shared and has been given the mother/baby guide for home reference.
[2021-05-21 09:46] VITALS: BP 132/84; PULSE 99; RESP 20; TEMP 36.6; O2SAT 99
== END 2021-05-19 13:05 | disposition home or self-care (01) | DRG 785 ==
LOC: ANHLDR 06:14 → ANHOB2 10:41
PROVIDERS: Admitting Provider Obstetrics & Gynecology; PCP Family Medicine; Visit Provider Obstetrics & Gynecology
PROC: 10D00Z1 Extraction of Products of Conception, Low, Open Approach (ICD-10-PCS; CPT 59514; principal; 2021-05-17 07:30)
DX: O34.219 Maternal care for unspecified type scar from previous cesarean delivery (principal); Z30.2 Encounter for sterilization; O69.81X0 Labor and delivery complicated by cord around neck, without compression, not applicable or unspecified; Z3A.39 39 weeks gestation of pregnancy; Z37.0 Single live birth
CPT/HCPCS: 36415; 80307; 85025; 88302; A9270; J0131; J1885; J2274; J2370; J2405; J2590; J7120